=== PATIENT | male | born 1995 | race Caucasian/White ===

== ENCOUNTER → 2020-06-09 | Outpatient (REF) | payer BC, OTHER | LOC: M LABWUC 12:40 | PROVIDERS: ATTEND Physician Assistant | DX: R19.7 Diarrhea, unspecified (principal) ==

== ENCOUNTER 2020-12-30 18:54 | Emergency (ER) | payer BC, OTHER ==
[~2020-12-30] VITALS: Ht 170.2 cm; Wt 90.9 kg
--- OUTSIDE RECORDS SUMMARY | 2020-12-30 19:36 | CCD ---
Author Author [facility] Organization [facility] Address Unknown Phone Unavailable Care Team Providers Care Drywall Finisher Name Role Phone Olu White PA Unavailable Unavailable VanArnam, W Arley PA Unavailable Unavailable VanArnam, W Arley PA Unavailable Unavailable VanArnam, W Arley PA Unavailable Unavailable VanArnam, W Arley PA Unavailable Unavailable VanArnam, W Arley PA Unavailable Unavailable VanArnam, W Arley PA Unavailable Unavailable VanArnam, W Arley PA Unavailable Unavailable VanArnam, W Arley PA Unavailable Unavailable VanArnam, W Arley PA Unavailable Unavailable VanArnam, W Arley PA Unavailable Unavailable VanArnam, W Arley PA Unavailable Unavailable VanArnam, W Arley PA Unavailable Unavailable VanArnam, W Arley PA Unavailable Unavailable VanArnam, W Arley PA Unavailable Unavailable VanArnam, W Arley PA Unavailable Unavailable VanArnam, W Arley PA Unavailable Unavailable VanArnam, W Arley PA Unavailable Unavailable VanArnam, W Arley PA Unavailable Unavailable VanArnam, W Arley PA Unavailable Unavailable VanArnam, W Arley PA Unavailable Unavailable VanArnam, W Arley PA Unavailable Unavailable VanArnam, W Arley PA Unavailable Unavailable VanArnam, W Arley PA Unavailable Unavailable VanArnam, W Arley PA Unavailable Unavailable VanArnam, W Arley PA Unavailable Unavailable VanArnam, W Arley PA Unavailable Unavailable VanArnam, W Arley PA Unavailable Unavailable VanArnam, W Arley PA Unavailable Unavailable VanArnam, W Arley PA Unavailable Unavailable VanArnam, W Arley PA Unavailable Unavailable VanArnam, W Arley PA Unavailable Unavailable VanArnam, W Arley PA Unavailable Unavailable VanArnam, W Arley PA Unavailable Unavailable VanArnam, W Arley PA Unavailable Unavailable VanArnam, W Arley PA Unavailable Unavailable VanArnam, W Arley PA Unavailable Unavailable VanArnam, W Arley PA Unavailable Unavailable VanArnam, W Arley PA Unavailable Unavailable VanArnam, W Arley PA Unavailable Unavailable VanArnam, W Arley PA Unavailable Unavailable VanArnam, W Arley PA Unavailable Unavailable RACHANA F KOMAL PETERSEN Unavailable Unavailable RACAHNA F KOMAL PETERSEN Unavailable Unavailable RACHANA F KOMAL PETERSEN Unavailable Unavailable RACHANA F KOMAL PETERSEN Unavailable Unavailable RACHANA F KOMAL PETERSEN Unavailable Unavailable RACHANA F KOMAL PETERSEN Unavailable Unavailable RACHANA F KOMAL PETERSEN Unavailable Unavailable RACHANA F KOMAL PETERSEN Unavailable Unavailable RACHANA F KOMAL PETERSEN Unavailable Unavailable RACHANA F KOMAL PETERSEN Unavailable Unavailable RACHANA F KOMAL PETERSEN Unavailable Unavailable RACHANA F KOMAL PETERSEN Unavailable Unavailable RACHANA F KOMAL PETERSEN Unavailable Unavailable RACHANA F KOMAL PETERSEN Unavailable Unavailable RACHANA F KOMAL PETERSEN Unavailable Unavailable RACHANA F KOMAL PETERSEN Unavailable Unavailable RACHANA F KOMAL PETERSEN Unavailable Unavailable RACHANA F KOMAL PETERSEN Unavailable Unavailable RACHANA F KOMAL PETERSEN Unavailable Unavailable RACHANA F KOMAL PETERSEN Unavailable Unavailable RACHANA F KOMAL PETERSEN Unavailable Unavailable RACHANA F KOMAL PETERSEN Unavailable Unavailable RACHANA F KOMAL PETERSEN Unavailable Unavailable RACHANA F KOMAL PETERSEN Unavailable Unavailable RACHANA F KOMAL PETERSEN Unavailable Unavailable RACHANA F KOMAL PETERSEN Unavailable Unavailable RACHANA F KOMAL PETERSEN Unavailable Unavailable RACHANA F KOMAL PETERSEN Unavailable Unavailable RACHANA F KOMAL PETERSEN Unavailable Unavailable RACHANA F KOMAL PETERSEN Unavailable Unavailable RACHANA F KOMAL PETERSEN Unavailable Unavailable RACHANA F KOMAL PETERSEN Unavailable Unavailable RACHANA F KOMAL PETERSEN Unavailable Unavailable RACHANA F KOMAL PETERSEN Unavailable Unavailable RACHANA F KOMAL PETERSEN Unavailable Unavailable RACHANA F KOMAL PETERSEN Unavailable Unavailable RACHANA F KOMAL PETERSEN Unavailable Unavailable RACHANA F KOMAL PETERSEN Unavailable Unavailable RACHANA F KOMAL PETERSEN Unavailable Unavailable RACHANA F KOMAL PETERSEN Unavailable Unavailable RACHANA F KOMAL PETERSEN Unavailable Unavailable RACHANA F KOMAL PETERSEN Unavailable Unavailable RACHANA F KOMAL PETERSEN Unavailable Unavailable RACHANA F KOMAL PETERSEN Unavailable Unavailable RACHANA F KOMAL PETERSEN Unavailable Unavailable RACHANA F KOMAL PETERSEN Unavailable Unavailable RACHANA F KOMAL PETERSEN Unavailable Unavailable RACHANA F KOMAL PETERSEN Unavailable Unavailable RACHANA F KOMAL PETERSEN Unavailable Unavailable RACHANA F KOMAL PETERSEN Unavailable Unavailable RACHANA F KOMAL PETERSEN Unavailable Unavailable RACHANA F KOMAL PETERSEN Unavailable Unavailable RACHANA F KOMAL PETERSEN Unavailable Unavailable RACHANA F KOMAL PETERSEN Unavailable Unavailable RACHANA F KOMAL PETERSEN Unavailable Unavailable RACHANA F KOMAL PETERSEN Unavailable Unavailable RACHANA F KOMAL PETERSEN Unavailable Unavailable Chrissy REICH MD Unavailable Unavailable Chrissy REICH MD Unavailable Unavailable RACHANA F KOMAL PETERSEN Unavailable Unavailable RACHANA F KOMAL PETERSEN Unavailable Unavailable RACHANA, F KOMAL MD Unavailable Unavailable RACHANA F KOMAL PETERSEN Unavailable Unavailable RACHANA, F KOMAL MD Unavailable Unavailable RACHANA, F KOMAL MD Unavailable Unavailable RACHANA, F KOMAL MD Unavailable Unavailable RACHANA, F KOMAL MD Unavailable Unavailable RACHANA, F KOMAL MD Unavailable Unavailable RACHANA, F KOMAL MD Unavailable Unavailable RACHANA, F KOMAL MD Unavailable Unavailable RACHANA, F KOMAL MD Unavailable Unavailable RACHANA, F KOMAL MD Unavailable Unavailable RACHANA, F KOMAL MD Unavailable Unavailable RACHANA, F KOMAL MD Unavailable Unavailable RACHANA, F KOMAL MD Unavailable Unavailable RACHANA, F KOMAL MD Unavailable Unavailable RACHANA F KOMAL PETERSEN Unavailable Unavailable RACHANA, F KOMAL PETERSEN Unavailable Unavailable RACHANA F KOMAL PETERSEN Unavailable Unavailable RACHANA F KOMAL PETERSEN Unavailable Unavailable Chrissy REICH MD Unavailable Unavailable Chrissy REICH MD Unavailable Unavailable Chrissy REICH MD Unavailable Unavailable Chrissy REICH MD Unavailable Unavailable Chrissy REICH MD Unavailable Unavailable Chrissy REICH MD Unavailable Unavailable BolJed nogueira MD Unavailable Unavailable BolJed nogueira MD Unavailable Unavailable BolJed nogueira MD Unavailable Unavailable BolJed nogueira MD Unavailable Unavailable BolJed nogueira MD Unavailable Unavailable BolJed nogueira MD Unavailable Unavailable BoleJd nogueira MD Unavailable Unavailable BolJed nogueira MD Unavailable Unavailable BolJed nogueira MD Unavailable Unavailable Jed Pearson MD Unavailable Unavailable BolJed nogueira MD Unavailable Unavailable BolJed nogueira MD Unavailable Unavailable BolJed nogueira MD Unavailable Unavailable BolJed nogueira MD Unavailable Unavailable BolJed nogueira MD Unavailable Unavailable BolJed nogueira MD Unavailable Unavailable BolJed nogueira MD Unavailable Unavailable BolJed nogueira MD Unavailable Unavailable BolJed nogueira MD Unavailable Unavailable BolJed nogueira MD Unavailable Unavailable BolJed nogueira MD Unavailable Unavailable BolJed nogueira MD Unavailable Unavailable BolJed nogueira MD Unavailable Unavailable BolJed nogueira MD Unavailable Unavailable BolJed nogueira MD Unavailable Unavailable BolJed nogueira MD Unavailable Unavailable BolJed nogueira MD Unavailable Unavailable BolJed nogueira MD Unavailable Unavailable BolJed nogueira MD Unavailable Unavailable BolJed nogueira MD Unavailable Unavailable Bolmirlande Jed Villa MD Unavailable Unavailable Bolla, S Allen PETERSEN Unavailable Unavailable Bolla, S Allen PETERSEN Unavailable Unavailable Bolla, S Allen PETERSEN Unavailable Unavailable Bolla, S Allen PETERSEN Unavailable Unavailable Bolla, S Allen PETERSEN Unavailable Unavailable Bolla, S Allen PETERSEN Unavailable Unavailable Bolla, S Allen PETERSEN Unavailable Unavailable Bolla, S Allen PETERSEN Unavailable Unavailable Bolla, S Allen PETERSEN Unavailable Unavailable Bolla, S Allen PETERSEN Unavailable Unavailable Bolla, S Allen PETERSEN Unavailable Unavailable Bolla, S Allen PETERSEN Unavailable Unavailable Bolla, S Allen PETERSEN Unavailable Unavailable Bolla, S Allen PETERSEN Unavailable Unavailable Bolla, S Allen PETERSEN Unavailable Unavailable Bolla, S Allen PETERSEN Unavailable Unavailable Bolla, S Allen PETERSEN Unavailable Unavailable ANNELIESE, F OLAMIDE PETERSEN Unavailable Unavailable ANNELIESE, F OLAMIDE PETERSEN Unavailable Unavailable ANNELIESE, F OLAMIDE PETERSEN Unavailable Unavailable ANNELIESE, F OLAMIDE PETERSEN Unavailable Unavailable ANNELIESE, F OLAMIDE PETERSEN Unavailable Unavailable ANNELIESE, F OLAMIDE PETERSEN Unavailable Unavailable ANNELIESE, F OLAMIDE PETERSEN Unavailable Unavailable ANNELIESE, F OLAMIDE PETERSEN Unavailable Unavailable ANNELIESE, F OLAMIDE MD Unavailable Unavailable ANNELIESE, F OLAMIDE MD Unavailable Unavailable ANNELIESE, F OLAMIDE MD Unavailable Unavailable ANNELIESE, F OLAMIDE MD Unavailable Unavailable ANNELIESE, F OLAMIDE MD Unavailable Unavailable ANNELIESE, F OLAMIDE MD Unavailable Unavailable ANNELIESE, F OLAMIDE MD Unavailable Unavailable ANNELIESE, F OLAMIDE MD Unavailable Unavailable ANNELIESE, F OLAMIDE MD Unavailable Unavailable ANNELIESE, F OLAMIDE MD Unavailable Unavailable ANNELIESE, F OLAMIDE MD Unavailable Unavailable ANNELIESE, F OLAMIDE MD Unavailable Unavailable ANNELIESE, F OLAMIDE MD Unavailable Unavailable ANNELIESE, F OLAMIDE MD Unavailable Unavailable ANNELIESE, F OLAMIDE MD Unavailable Unavailable ANNELIESE, F OLAMIDE MD Unavailable Unavailable ANNELIESE, F OLAMIDE MD Unavailable Unavailable ANNELIESE, F OLAMIDE MD Unavailable Unavailable ANNELIESE, F OLAMIDE MD Unavailable Unavailable ANNELIESE, F OLAMIDE MD Unavailable Unavailable ANNELIESE, F OLAMIDE MD Unavailable Unavailable ANNELIESE, F OLAMIDE MD Unavailable Unavailable ANNELIESE, F OLAMIDE MD Unavailable Unavailable LETTIERE, A MADISON PA Unavailable Unavailable LETTIERE, A MADISON PA Unavailable Unavailable LETTIERE, A MADISON PA Unavailable Unavailable LETTIERE, A MADISON PA Unavailable Unavailable LETTIERE, A MADISON PA Unavailable Unavailable LETTIERE, A MADISON PA Unavailable Unavailable LETTIERE, A MADISON PA Unavailable Unavailable LETTIERE, A MADISON PA Unavailable Unavailable LETTIERE, A MADISON PA Unavailable Unavailable LETTIERE, A MADISON PA Unavailable Unavailable LETTIERE, A MADISON PA Unavailable Unavailable LETTIERE, A MADISON PA Unavailable Unavailable LETTIERE, A MADISON PA Unavailable Unavailable LETTIERE, A MADISON PA Unavailable Unavailable LETTIERE, A MADISON PA Unavailable Unavailable LETTIERE, A MADISON PA Unavailable Unavailable LETTIERE, A MADISON PA Unavailable Unavailable LETTIERE, A MADISON PA Unavailable Unavailable LETTIERE, A MADISON PA Unavailable Unavailable LETTIERE, A MADISON PA Unavailable Unavailable LETTIERE, A MADISON PA Unavailable Unavailable LETTIERE, A MADISON PA Unavailable Unavailable LETTIERE, A MADISON PA Unavailable Unavailable LETTIERE, A MADISON PA Unavailable Unavailable LETTIERE, A MADISON PA Unavailable Unavailable LETTIERE, A MADISON PA Unavailable Unavailable LETTIERE, A MADISON PA Unavailable Unavailable LETTIERE, A MADISON PA Unavailable Unavailable LETTIERE, A MADISON PA Unavailable Unavailable Re-disclosure Warning The records that you are about to access may contain information from federally-assisted alcohol or drug abuse programs. If such information is present, then the following federally mandated warning applies: This information has been disclosed to you from records protected by federal confidentiality rules (42 CFR part 2). The federal rules prohibit you from making any further disclosure of this information unless further disclosure is expressly permitted by the written consent of the person to whom it pertains or as otherwise permitted by 42 CFR part 2. A general authorization for the release of medical or other information is NOT sufficient for this purpose. The Federal rules restrict any use of the information to criminally investigate or prosecute any alcohol or drug abuse patient.The records that you are about to access may contain highly sensitive health information, the redisclosure of which is protected by Article 27-F of the [facility] Public Health law. If you continue you may have access to information: Regarding HIV / AIDS; Provided by facilities licensed or operated by the [facility] Office of Mental Health; or Provided by the [facility] Office for People With Developmental Disabilities. If such information is present, then the following [facility] mandated warning applies: This information has been disclosed to you from confidential records which are protected by state law. State law prohibits you from making any further disclosure of this information without the specific written consent of the person to whom it pertains, or as otherwise permitted by law. Any unauthorized further disclosure in violation of state law may result in a fine or shelter sentence or both. A general authorization for the release of medical or other information is NOT sufficient authorization for further disc losure. Family History Family Member Name Family Member Gender Family Member Status Date o f Status Description Data Source(s) Unknown Unknown Problem [facility] ([facility], [facility]) Encounters Encounter Providers Location Date Indications Data Source(s ) Outpatient Attender: MADISON seth 06/09/2020 08:00:00 AM EDT [facility] ([facility], [facility]) Outpatient Attender: Arley Mack: OLAMIDE DUNBAR MD 01/28/2020 12:57:16 PM EDT [facility] Allen Pearson MD: [id number] [facility] [address], [place] [address], Ph. Attender: Allen Pearson MD [facility] 01/20/2020 12:00:00 AM EDT [facility] ([facility]) Allen Pearson MD: [id number] [facility] [address] [facility] [place] [address], Ph. Attender: Allen Pearson MD [facility] 01/06/2020 12:00:00 AM EST [facility] ([facility]) Allen Pearson MD: [id number] [facility] [address], [place] [address], Ph. Attender: Allen Pearson MD [facility] 01/06/2020 12:00:00 AM EST [facility] ([facility]) Outpatient Attender: Arley Mack: OLAMIDE DUNBAR MD 12/30/2019 07:54:51 AM EST [facility] [address] [place] [address], [place] [address] 12/24/2019 12:00:00 AM EST eCW1 ([facility]) Allen Pearson MD: [id number], [place] [address], Ph. Attender: Allen Pearson MD [facility] 12/22/2019 12:00:00 AM EST [facility] ([facility]) Allen Pearson MD: [id number] [facility] [address], [place] [address], Ph. Attender: Allen Pearson MD [facility] 12/22/2019 12:00:00 AM EST [facility] ([facility]) Allen Pearson MD: [id number] [facility] [address], [facility] [address], Ph. Attender: Allen Pearson MD [facility] 12/22/2019 12:00:00 AM EST [facility] ([facility]) Recurring Patient Attender: KOMAL REICH MDReferrer: OLAMIDE CH MD 12/09/2019 10:17:59 AM EST [facility] Medications Medication Brand Name Start Date Product Form Dose Route Admi nistrative Instructions Pharmacy Instructions Status Indications Reaction Description Data Source(s) Azithromycin 500 MG Oral Tablet Azithromycin 06/09/2020 12:00:00 AM EDT active [facility] ([facility], [facility]) Dicyclomine Hydrochloride 10 MG Oral Capsule Dicyclomine HCL 06/09/2020 12:00:00 AM EDT ORAL active [facility] ([facility], [facility]) 10 mg 06/09/2020 12:00:00 AM EDT capsule 21 TAKE ONE CAPSULE BY MOUTH EVERY 8 HOURS FOR ONE WEEK TAKE ONE CAPSULE BY MOUTH EVERY 8 HOURS FOR ONE WEEK S OLD: 06/09/2020 [facility] No Active Medications 06/09/2020 12:00:00 AM EDT completed [facility] ([facility], [facility]) 4 mg 12/22/2019 12:00:00 AM EST tablet 30 TAKE ONE TABLET BY MOUTH THREE TIMES A DAY NEEDED TAKE ONE TABLET BY MOUTH THREE TIMES A DAY NEEDED S OLD: 12/22/2019 [facility] methylprednisolone 4 mg tablets in a dose pack [id number] completed methylprednisolone 4 mg tablets in a dose pack [facility] ([facility]) meloxicam 15 MG Oral Tablet meloxicam 15 mg tablet meloxicam 15 mg ta blet completed meloxicam 15 MG Oral Tablet [facility] ([facility]) Naproxen 500 MG Oral Tablet naproxen 500 mg tablet naproxen 500 mg ta blet completed Naproxen 500 MG Oral Tablet [facility] ([facility]) meloxicam 15 MG Oral Tablet meloxicam 15 mg tablet meloxicam 15 mg ta blet completed meloxicam 15 MG Oral Tablet [facility] ([facility]) Cyclobenzaprine hydrochloride 10 MG Oral Tablet cyclob enzaprine 10 mg tablet cyclobenzaprine 10 mg tablet completed Cyclobenzaprine hydrochloride 10 MG Oral Tablet [facility] ([facility]) Naproxen 500 MG Oral Tablet naproxen 500 mg tablet naproxen 500 mg ta blet completed Naproxen 500 MG Oral Tablet [facility] ([facility]) Cyclobenzaprine hydrochloride 10 MG Oral Tablet cyclob enzaprine 10 mg tablet cyclobenzaprine 10 mg tablet completed Cyclobenzaprine hydrochloride 10 MG Oral Tablet [facility] ([facility]) methylprednisolone 4 mg tablets in a dose pack [id number] completed methylprednisolone 4 mg tablets in a dose pack [facility] ([facility]) methylprednisolone 4 mg tablets in a dose pack [id number] completed methylprednisolone 4 mg tablets in a dose pack [facility] ([facility]) Naproxen 500 MG Oral Tablet naproxen 500 mg tablet naproxen 500 mg ta blet completed Naproxen 500 MG Oral Tablet [facility] ([facility]) Cyclobenzaprine hydrochloride 10 MG Oral Tablet cyclob enzaprine 10 mg tablet cyclobenzaprine 10 mg tablet completed Cyclobenzaprine hydrochloride 10 MG Oral Tablet [facility] ([facility]) meloxicam 15 MG Oral Tablet meloxicam 15 mg tablet meloxicam 15 mg ta blet completed meloxicam 15 MG Oral Tablet [facility] ([facility]) Insurance Providers Payer name Policy type / Coverage type Policy ID Covered constitution party ID Covered constitution party's relationship to everett Policy Everett Plan Information [facility] [id number] [facility] [id number] [id number] ACTIVE DUTY [id number] SP [id number] Micanopy Plan F [id number] PARENT [id number] [employer]ican[employer] Plan F [id number] PARENT [id number] Micanopy Plan F [id number] PARENT [id number] 3 [facility] [id number] FA2 [id number] [facility] EMPIRMann DE OLIVEIRA DIV [id number] EMPIRE (STATE EMP) P [id number] Results ID Date Data Source [id number] 06/09/2020 10:00:00 AM EDT [facility] ([facility]) Name Value Range Interpretation Code Description Data Lilibeth rce(s) Supporting Document(s) Gastrointestinal (GI) Panel Laboratory test result [facility] ([facility]) This Gastrointestinal PCR Panel detects the following bacteria, parasites and viruses: Campylobacter (jejuni, coli and upsaliensis), Clostridium difficile (toxin A/B), Plesiomonas shigelloides, Salmonella, Yersinia enterocolitica, Vibrio (parahaemolyticus, vulnificus and cholerae), Vibrio clolerae, Enteroaggregative E. coli (EAEC), Enteropathogenis E. coli (EPEC), Enterotoxigenic E. coli (ETEC) it/st, Shiga-like producing E. coli (STEC) stx1/stc2, E.coli O157, Shigella/Enteroinvasive E. coli (EIEC), Cryptosporidium, Cyclospora caye tanensis, Entamoeba histolytica, Giardia lamblia, Adenovirus F 40/41, Astrovirus, Norovirus GI/GII, Rotavirus A and Sapovirus (I, II, IV, V). POSITIVE by MULTIPLEXED NUCLEIC ACID PCR ORGANISM 1: CAMPYLOBACTER CONSISTENCY UNKNOWN. Campylobacter outbreaks have been associated with unpasteurized dairy, contaminated water, poultry and produce. Campylobacter are a leading cause of enteritis in the and the most common cause of foodbourne illness. Infections range from asymptomatic to severe infections characterized by bloody or non- bloody diarrhea, fever and abdominal cramping. ORGANISM 1: CAMPYLOBACTER ID Date Data Source [id number] 01/28/2020 12:57:16 PM EDT [facility] Bulmaro Orosco: 1995Provider: Lynn Monroe: 01/28/2020 History of Present IllnessPatient is a 24-year-old male who presents to the office with a chief complaint of constant low back pain and since his last office visit here he is now experiencing episodes of severe radiating pain along the posterolateral aspect of the left lower extremity. There is also intermittent numbness involving the plantar aspect of the left foot. Rarely has right lower extremity symptoms. He had one episode of bowel incontinence. Also had 2 brief episodes of penile and rectal numbness. Denies any additional episodes of bowel/bladder incontinence or numbness. Since last office visit he completed physical therapy and had [address] Pearson. The first injection helped his symptoms for 2 days. The second injection actually increased his low back pain. Results/Data XRays previously taken were reviewed today. Site: Lumbar Spine Findings:. No fractures, dislocations, or other significant abnormalities. Results/Data [facility] Impression: Moderate disc desiccation and loss of disc height at L4-5. Left-sided disc protrusion. No right neural foraminal narrowing or neural compression. Mild disc desiccation and loss of disc height at L5-S1. Assessment 1. Herniated nucleus pulposus of lumbosacral region (722.10) (M51.27) DDD at L4-5 and L5-S1 PlanPlan, Assessment and Recommendation(s) The nature of the diagnosis and various treatment alternatives were discussed today, including invasive, opera tive, and non-operative options. Patient is constant low back pain and now with left-sided radicular symptoms consistent with the left L4-5 disc herniation seen on MRI. Refractory to conservative treatment consisting of home exercises, chiropractor, physical therapy, and injections. We discussed that a left L4-5 discectomy has a high chance of lessening or resolving his left lower extremity symptoms but will not change his low back pain. Do not recommend lumbar fusion. Patient is okay with this plan and would like to move forward with left L4-5 discectomy. Surgeries are on hold due to recent Covid 19 pandemic and we will contact him once elective surgeries are now. Work / School NoteThe patient is working at this time. This document was dictated and electronically signed using [employer] Speaking software. A reasonable attempt at proof reading has been made to minimize errors. Please call with any questions. Signatures Electronically signed by : Kenji Peter; Jan 28 2020 12:54PM EST (Author) Electronically signed by : Robert Graham M.D.; Jan 28 2020 12:57PM EST Name Value Range Interpretation Code Description Data Lilibeth rce(s) Supporting Document(s) ID Date Data Source [id number] 12/30/2019 07:54:51 AM EST [facility] Bul[facility] Orosco: 1995Provider: Lynn Monroe: 12/09/2019 History of Present IllnessPatient is a 24-year-old male [place] who presents to the office with a chief complaint of constant right-sided low back pain around L4-5 and L5-S1. Associated with radiating pain in the right lower extremity which is episodic. Denies any left lower extremity symptoms. Denies any saddle paresthesia or bowel/bladder dysfunction. No change since last office visit. Recently had an MRI of his lumbar spine. Results/Data XRays previously taken were reviewed to day. Site: Lumbar Spine Findings:. No fractures, dislocations, or other significant abnormalities. Results/Data OtherMRI [facility]. Impression: Moderate disc desiccation and loss of disc height at L4-5. Left-sided disc protrusion. No right neural foraminal narrowing or neural compression. Mild disc desiccation and loss of disc height at L5-S1. Assessment 1. Lower back pain (724.2) (M54.5) PlanPlan, Assessment and Recommendation(s) The nature of the diagnosis and various treatment alternatives were discussed today, including invasive, operative, and non-oper ative options. Acute on chronic right-sided low back pain with right lumbar radiculitis. Recent MRI shows no right-sided disc herniation explain his right lower 70 symptoms. In further talking with the patient, right lower extremity symptoms are fairly infrequent. Primary complaint is his low back pain. He does have disc desiccation at L4-5 and L5-S1, worse at L4-5. We discussed conservative options such as home exercises, activity modification, chiropractor, acupuncture, and yoga. He has already attended physical therapy. Also discussed referral to a pain clinic for injections. Do not recommend patria gical intervention secondary to his young age. Patient is in agreement. I will refer him to Dr. Pearson for consultation. Work / School NoteThe patient is working at this time. This document was dictated and electronically signed using [employer] software. A reasonable attempt at proof reading has been made to minimize errors. Please call with any questions. Signatures Electronically signed by : Kenji Peter; Dec 11 2019 9:23AM EST (Author) Electronically signed by : Robert Graham M.D.; Dec 11 2019 11:43AM EST Name Value Range Interpretation Code Description Data Lilibeth rce(s) Supporting Document(s) ID Date Data Source [id number] 12/09/2019 09:25:00 AM EST [facility] PATIENT MR#: [id number] NAME: Bulmaro Veras DATE OF : 1995REFERRING PHYSICIAN: Robert GrahamEXNATE DATE: 12/09/2019EXAM: LUMBAR SPINE MRINDICATION: Right-Sided Low Back Pain Approximately L4-5 and L5- S1. Assess forDisc Herniation.PRIOR EXAM: Conventional radiographs October 10, 2019TECHNIQUE: Sagittal and axial images were obtained through the lumbar spineutilizing various pulse sequences. For the purpose of nomenclature, the highestdisk space scanned fully in the axial plane shall be designated T12/L1 nextfield normal lordosis lumbar spine. Normal signal characteristics lumbarvertebra. Normal position conus medullary is at.Findings: T12 -L1 through L3 4: No disc herniation. No central canal, lateralrecess, exiting neural foraminal stenosis.L4-5: There is moderate disc desiccation and loss of disc height. There is amoderate sized dorsal left protruding disc herniation with ventral left thecalsac effacement. The herniation extends into the mild narrows the left exitingneural foramina. There is also moderate left lateral recess stenosis. No rightexiting neural foraminal stenosis.L5-S1: Disc desiccation with mild loss of disc height. There is a small centraldorsal protruding disc herniation with minimal ventral thecal sac impingement. No central canal, lateral recess or exiting neural foraminal stenosis.Unremarkable partially visualized portions of the sacrum and medial iliac wings.Unremarkable partially visualized adrenals.IMPRESSION:1. L4-5: Disc desiccation. Moderate-sized dorsal left protruding discherniation. Patient with right-sided symptoms h owever there is no evidence forright exiting neural foraminal stenosis or extraforaminal right-sided discherniation.2. L5-S1: Disc desiccation and loss of disc height. Small central herniationRead by: Haroldo SharpTranscribed by: Haroldo SharpTranscribed Date: 12/09/2019 9:25:04 AMElectronically signed by: Haroldo SharpDacarolann signed: 12/09/2019 9:25:24 AM Name Value Range Interpretation Code Description Data Lilibeth rce(s) Supporting Document(s) Procedure Vital Signs ID Date Data Source UNK Name Value Range Interpretation Code Description Data Source(s) Body mass index (BMI) [Ratio] 29.0 kg/m2 29.0 k g/m2 [facility] ([facility], [facility]) Body height 67 [in_i] 67 [in_i] [facility] ([facility]) 5'7" Body weight 185.00 [lb_av] 185.00 [lb_av] [facility] T ([facility], [facility]) Body temperature 98.2 [degF] 98.2 [degF] [facility] ([facility]) Oxygen saturation in Arterial blood by Pulse oximetry 97 % 97 % [facility] ([facility]) Respiratory rate 12 /min 12 /min [facility] ( [facility]) Heart rate 88 /min 88 /min [facility] ([facility], [facility]) Diastolic blood pressure 79 mm[Hg] 79 mm[Hg] [facility] Systolic blood pressure 125 mm[Hg] 125 mm[Hg] [facility] Body weight 199 [lb_av] 199 [lb_av] [facility] ([facility]) Systolic blood pressure 126 mm[Hg] 126 mm[Hg] A [facility] ([facility]) Body mass index (BMI) [Ratio] 32.1 kg/m2 32.1 k g/m2 [facility] ([facility]) Body height 66 [in_i] 66 [in_i] [facility] ([facility]) Diastolic blood pressure 78 mm[Hg] 78 mm[Hg] [facility] ([facility]) Body weight 199 [lb_av] 199 [lb_av] [facility] ([facility]) Systolic blood pressure 126 mm[Hg] 126 mm[Hg] A [facility] ([facility]) Body mass index (BMI) [Ratio] 32.1 kg/m2 32.1 k g/m2 [facility] ([facility]) Body height 66 [in_i] 66 [in_i] [facility] ([facility]) Diastolic blood pressure 78 mm[Hg] 78 mm[Hg] [facility] ([facility]) Body weight 199 [lb_av] 199 [lb_av] [facility] ([facility]) Systolic blood pressure 126 mm[Hg] 126 mm[Hg] A [facility] ([facility]) Body mass index (BMI) [Ratio] 32.1 kg/m2 32.1 k g/m2 [facility] ([facility]) Body height 66 [in_i] 66 [in_i] [facility] ([facility]) Diastolic blood pressure 78 mm[Hg] 78 mm[Hg] [facility] ([facility]) Patient Treatment Plan of Care Planned Activity Planned Date Details Description Data Source (s) Naproxen 500 MG Oral Tablet [facility] ([facility]) methylprednisolone 4 mg tablets in a dose pack [facility] ([facility]) meloxicam 15 MG Oral Tablet [facility] ([facility]) Cyclobenzaprine hydrochloride 10 MG Oral Tablet [facility] ([facility]) Naproxen 500 MG Oral Tablet [facility] ([facility]) methylprednisolone 4 mg tablets in a dose pack [facility] ([facility]) meloxicam 15 MG Oral Tablet [facility] ([facility]) Cyclobenzaprine hydrochloride 10 MG Oral Tablet [facility] ([facility]) Naproxen 500 MG Oral Tablet [facility] ([facility]) methylprednisolone 4 mg tablets in a dose pack [facility] ([facility]) meloxicam 15 MG Oral Tablet [facility] ([facility]) Cyclobenzaprine hydrochloride 10 MG Oral Tablet [facility] ([facility])
--- OUTSIDE RECORDS SUMMARY | 2020-12-30 20:44 | CCD ---
Author Author [facility] Organization [facility] Address Unknown Phone Unavailable Care Team Providers Care Booking Clerk Name Role Phone Olu White PA Unavailable [...] F KOMAL PETERSEN Unavailable Unavailable RACHANA F KOAML PETERSEN Unavailable Unavailable RACHNAA F KOMAL PETERSEN Unavailable Unavailable RACHANA F [...] Unavailable BolJed nogueira MD Unavailable Unavailable BolJed nogeuira MD Unavailable Unavailable BolJed nogueira MD Unavailable [...] is protected by Article 27-F of the [facility] Public Health law. If you continue you may have access to information: Regarding HIV / AIDS; Provided by facilities licensed or operated by the [facility] Office of Mental Health; or Provided by the [facility] Office for People With Developmental Disabilities. If such information is present, then the following [facility] mandated warning applies: This information has been [...] law may result in a fine or alf sentence or both. A general authorization for the release of medical or other information is NOT sufficient authorization for further disc losure. Family History Family Member Name Family Member Gender Family Member Status Date o f Status Description Data Source(s) Unknown Unknown Problem [facility] ([facility], [facility]) Encounters Encounter Providers Location Date Indications Data Source(s ) Outpatient Attender: MADISON seth 06/09/2020 08:00:00 AM EDT [facility] ([facility]) Outpatient Attender: Arley Mack: OLAMIDE DUNBAR MD 01/28/2020 12:57:16 PM EDT [facility] Allen Pearson MD: [id number] [facility] [address], [place] [address], Ph. Attender: Allen Pearson MD [facility] 01/20/2020 12:00:00 AM EDT [facility] ([facility]) Allen Pearson MD: [id number] [facility], [place] [address], Ph. Attender: Allen Pearson MD [facility] 01/06/2020 12:00:00 AM EST [facility] ([facility]) Allen Pearson MD: [id number] [facility] [address], [place] [address], Ph. Attender: Allen Pearson MD [facility] 01/06/2020 12:00:00 AM EST [facility] ([facility]) Outpatient Attender: Arley Mack: OLAMIDE DUNBAR MD 12/30/2019 07:54:51 AM EST [facility] [address] [place] [address], [place] [address] 12/24/2019 12:00:00 AM EST eCW1 ([facility]) Allen Pearson MD: [id number], [place] [address], Ph. Attender: Allen Pearson MD [facility] 12/22/2019 12:00:00 AM EST [facility] ([facility]) Allen Pearson MD: [id number] [facility] [address], [place] [address], Ph. Attender: Allen Pearson MD [facility] 12/22/2019 12:00:00 AM EST [facility] ([facility]) Allen Pearson MD: [id number] [facility] [address], [facility] [place] [address], Ph. Attender: Allen Pearson MD [facility] 12/22/2019 12:00:00 AM EST [facility] ([facility]) Recurring Patient Attender: KOMAL REICH MDReferrer: OLAMIDE CH MD 12/09/2019 10:17:59 AM EST [facility] Medications Medication Brand Name Start Date Product Form Dose Route Admi nistrative Instructions Pharmacy Instructions Status Indications Reaction Description Data Source(s) Azithromycin 500 MG Oral Tablet Azithromycin 06/09/2020 12:00:00 AM EDT active [facility] ([facility]) Dicyclomine Hydrochloride 10 MG Oral Capsule Dicyclomine HCL 06/09/2020 12:00:00 AM EDT ORAL active [facility] ([facility]) 10 mg 06/09/2020 12:00:00 AM EDT capsule 21 TAKE ONE CAPSULE BY MOUTH EVERY 8 HOURS FOR ONE WEEK TAKE ONE CAPSULE BY MOUTH EVERY 8 HOURS FOR ONE WEEK S OLD: 06/09/2020 [facility] No Active Medications 06/09/2020 12:00:00 AM EDT completed [facility] ([facility], [facility]) 4 mg 12/22/2019 12:00:00 AM EST tablet 30 TAKE ONE TABLET BY MOUTH THREE TIMES A DAY NEEDED TAKE ONE TABLET BY MOUTH THREE TIMES A DAY NEEDED S OLD: 12/22/2019 [facility] methylprednisolone 4 mg tablets in a dose pack [id number] completed methylprednisolone 4 mg tablets in a dose pack [facility] ([facility]) meloxicam 15 MG Oral Tablet meloxicam 15 mg tablet meloxicam 15 mg ta blet completed meloxicam 15 MG Oral Tablet [facility] ([facility]) Naproxen 500 MG Oral Tablet naproxen 500 mg tablet naproxen 500 mg ta blet completed Naproxen 500 MG Oral Tablet [facility] ([facility]) meloxicam 15 MG Oral Tablet meloxicam 15 mg tablet meloxicam 15 mg ta blet completed meloxicam 15 MG Oral Tablet [facility] ([facility]) Cyclobenzaprine hydrochloride 10 MG Oral Tablet cyclob enzaprine 10 mg tablet cyclobenzaprine 10 mg tablet completed Cyclobenzaprine hydrochloride 10 MG Oral Tablet [facility] ([facility]) Naproxen 500 MG Oral Tablet naproxen 500 mg tablet naproxen 500 mg ta blet completed Naproxen 500 MG Oral Tablet [facility] ([facility]) Cyclobenzaprine hydrochloride 10 MG Oral Tablet cyclob enzaprine 10 mg tablet cyclobenzaprine 10 mg tablet completed Cyclobenzaprine hydrochloride 10 MG Oral Tablet [facility] ([facility]) methylprednisolone 4 mg tablets in a dose pack [id number] completed methylprednisolone 4 mg tablets in a dose pack [facility] ([facility]) methylprednisolone 4 mg tablets in a dose pack [id number] completed methylprednisolone 4 mg tablets in a dose pack [facility] ([facility]) Naproxen 500 MG Oral Tablet naproxen 500 mg tablet naproxen 500 mg ta blet completed Naproxen 500 MG Oral Tablet [facility] ([facility]) Cyclobenzaprine hydrochloride 10 MG Oral Tablet cyclob enzaprine 10 mg tablet cyclobenzaprine 10 mg tablet completed Cyclobenzaprine hydrochloride 10 MG Oral Tablet [facility] ([facility]) meloxicam 15 MG Oral Tablet meloxicam 15 mg tablet meloxicam 15 mg ta blet completed meloxicam 15 MG Oral Tablet [facility] ([facility]) Insurance Providers Payer name Policy type / Coverage type Policy ID Covered democrat ID Covered democrat's relationship to everett Policy Everett Plan Information [facility] [id number] FA2 [id number] [facility] [id number] FA2 [id number] ACTIVE DUTY [id number] SP [id number] Lowry Plan F [id number] PARENT [id number] Lowry Plan F [id number] PARENT [id number] 3 Lowry Plan F [id number] PARENT [id number] 3 [facility] [id number] FA2 [id number] [employer] E[employer]IRE [place] [id number] FA2 [id number] EMPIRE (STATE EMP) P [id number] Results ID Date Data Source [id number] 06/09/2020 10:00:00 AM EDT [facility] ([facility]) Name Value Range Interpretation Code Description Data Lilibeth rce(s) Supporting Document(s) Gastrointestinal (GI) Panel Laboratory test result [facility] ([facility]) This Gastrointestinal PCR Panel detects the following [...] ORGANISM 1: CAMPYLOBACTER ID Date Data Source [id number] 01/28/2020 12:57:16 PM EDT [facility] PC[facility]: Bulmaro Orosco: 1995Provider: Lynn [...] abnormalities. Results/Data OtherMRI lumbar spine performed at [facility] 12[facility]. Impression: Moderate disc desiccation [...] document was dictated and electronically signed using [employer] software. A reasonable attempt at proof reading has been made to minimize errors. Please call with any questions. Signatures Electronically signed by : Kenji Peter; Jan 28 2020 12:54PM EST (Author) Electronically signed by : Robert Graham M.D.; Jan 28 2020 12:57PM EST Name Value Range Interpretation Code Description Data Lilibeth rce(s) Supporting Document(s) ID Date Data Source [id number] 12/30/2019 07:54:51 AM EST [facility] PC[facility]: Bulmaro Orosco: 1995Provider: Lynn [...] abnormalities. Results/Data OtherMRI lumbar spine performed at [facility] on 12/09/19. Impression: Moderate disc desiccation [...] document was dictated and electronically signed using [employer] software. A reasonable attempt at proof reading has been made to minimize errors. Please call with any questions. Signatures Electronically signed by : Kenji Peter; Dec 11 2019 9:23AM EST (Author) Electronically signed by : Robert Graham M.D.; Dec 11 2019 11:43AM EST Name Value Range Interpretation Code Description Data Lilibeth rce(s) Supporting Document(s) ID Date Data Source [id number] 12/09/2019 09:25:00 AM EST [facility] PATIENT MR#: [id number] NAME: Bulmaro Veras DATE OF : 1995REFERRING [...] (BMI) [Ratio] 29.0 kg/m2 29.0 k g/m2 [facility] ([facility], [facility]) Body height 67 [in_i] 67 [in_i] [facility] ([facility]) 5'7" Body weight 185.00 [lb_av] 185.00 [lb_av] MEDEN T ([facility], [facility]) Body temperature 98.2 [degF] 98.2 [degF] [facility] ([facility]) Oxygen saturation in Arterial blood by Pulse oximetry 97 % 97 % [facility] ([facility]) Respiratory rate 12 /min 12 /min [facility] ( [facility]) Heart rate 88 /min 88 /min [facility] ([facility], [facility]) Diastolic blood pressure 79 mm[Hg] 79 mm[Hg] [facility] Systolic blood pressure 125 mm[Hg] 125 mm[Hg] [facility] Body weight 199 [lb_av] 199 [lb_av] [facility] ([facility]) Systolic blood pressure 126 mm[Hg] 126 mm[Hg] A [facility] ([facility]) Body mass index (BMI) [Ratio] 32.1 kg/m2 32.1 k g/m2 [facility] ([facility]) Body height 66 [in_i] 66 [in_i] [facility] ([facility]) Diastolic blood pressure 78 mm[Hg] 78 mm[Hg] [facility] ([facility]) Body weight 199 [lb_av] 199 [lb_av] [facility] ([facility]) Systolic blood pressure 126 mm[Hg] 126 mm[Hg] A [facility] ([facility]) Body mass index (BMI) [Ratio] 32.1 kg/m2 32.1 k g/m2 [facility] ([facility]) Body height 66 [in_i] 66 [in_i] [facility] ([facility]) Diastolic blood pressure 78 mm[Hg] 78 mm[Hg] [facility] ([facility]) Body weight 199 [lb_av] 199 [lb_av] [facility] ([facility]) Systolic blood pressure 126 mm[Hg] 126 mm[Hg] A [facility] ([facility]) Body mass index (BMI) [Ratio] 32.1 kg/m2 32.1 k g/m2 [facility] ([facility]) Body height 66 [in_i] 66 [in_i] [facility] ([facility]) Diastolic blood pressure 78 mm[Hg] 78 mm[Hg] [facility] ([facility]) Patient Treatment Plan of Care Planned Activity Planned Date Details Description Data Source (s) Naproxen 500 MG Oral Tablet [facility] ([facility]) methylprednisolone 4 mg tablets in a dose pack [facility] ([facility]) meloxicam 15 MG Oral Tablet [facility] ([facility]) Cyclobenzaprine hydrochloride 10 MG Oral Tablet [facility] ([facility]) Naproxen 500 MG Oral Tablet [facility] ([facility]) methylprednisolone 4 mg tablets in a dose pack [facility] ([facility]) meloxicam 15 MG Oral Tablet [facility] ([facility]) Cyclobenzaprine hydrochloride 10 MG Oral Tablet [facility] ([facility]) Naproxen 500 MG Oral Tablet [facility] ([facility]) methylprednisolone 4 mg tablets in a dose pack [facility] ([facility]) meloxicam 15 MG Oral Tablet [facility] ([facility]) Cyclobenzaprine hydrochloride 10 MG Oral Tablet [facility] ([facility])
[2020-12-30] MEDS ORDERED: METOCLOPRAMIDE INJ 10MG/2ML VIAL (J2765 PER 1) IV ONE (21:50)
[2020-12-30] MEDS ORDERED: KETOROLAC 30 MG/ML 1ML VIAL IV ONE (21:50)
[2020-12-30] MEDS ORDERED: dexameTHASONE 20MG/5ML VIAL (J1100 PER 1MG) IV ONE (21:50)
[2020-12-30] MEDS ORDERED: NS 1,000 ML IV ONE (21:50)
[2020-12-30 22:16] LABS: BASO % 0.5 % (0.0-1.0); EOS # 0.1 10^3/uL (0.0-0.5); EOS % 1.8 % (0.0-3.0); HEMATOCRIT 43.6 % (42.0-52.0); HEMOGLOBIN 14.7 g/dl (13.5-17.5); LYMPH # 2.2 10^3/uL (1.5-5.0); LYMPH % 39.9 % (24.0-44.0); MEAN CORPUSCULAR HEMOGLOBIN 29.1 pg (27.0-33.0); MEAN CORPUSCULAR HGB CONC 33.7 g/dl (32.0-36.5); MEAN CORPUSCULAR VOLUME 86.2 fl (80.0-96.0); MONO # 0.5 10^3/uL (0.0-0.8); MONO % 9.5 % (2.0-8.0); NEUTROPHILS # 2.7 10^3/uL (1.5-8.5); NEUTROPHILS % 48.1 % (36.0-66.0); PLATELET COUNT, AUTOMATED 206 10^3/uL (150-450); RED BLOOD COUNT 5.06 10^6/uL (4.30-6.10); WHITE BLOOD COUNT 5.6 10^3/uL (4.0-10.0)
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
[2020-12-30] MEDS ORDERED: PRED10TA2 PO (23:20)
[2020-12-30 23:37] VITALS: BP 128/70
== END 2020-12-30 23:46 | disposition home or self-care (01) ==
LOC: M ED 18:54
DX: H53.8 Other visual disturbances (principal); R51.9 Headache, unspecified
CPT/HCPCS: 36415; 70450; 80047; 83735; 85025; 96361; 96374; 96375; 99284; J1100; J1885; J2765

== ENCOUNTER → 2021-02-07 | Outpatient (REF) | payer OTHER ==
[~2021-02-07] MED LIST: PRED10TA2 PO
[2021-02-07 14:51] LABS: BASO % 0.5 % (0.0-1.0); EOS # 0.1 10^3/uL (0.0-0.5); HEMATOCRIT 45.7 % (42.0-52.0); HEMOGLOBIN 15.7 g/dl (13.5-17.5); LYMPH % 35.4 % (24.0-44.0); MEAN CORPUSCULAR HEMOGLOBIN 29.8 pg (27.0-33.0); MEAN CORPUSCULAR HGB CONC 34.4 g/dl (32.0-36.5); MEAN CORPUSCULAR VOLUME 86.7 fl (80.0-96.0); MONO # 0.6 10^3/uL (0.0-0.8); MONO % 10.4 % (2.0-8.0); NEUTROPHILS # 2.8 10^3/uL (1.5-8.5); NEUTROPHILS % 51.2 % (36.0-66.0); PLATELET COUNT, AUTOMATED 210 10^3/uL (150-450); RED BLOOD COUNT 5.27 10^6/uL (4.30-6.10); WHITE BLOOD COUNT 5.6 10^3/uL (4.0-10.0)
[2021-02-07 15:34] LABS: ALBUMIN 4.7 GM/DL (3.2-5.2); ALT/SGPT 52 U/L (12-78); BILIRUBIN,TOTAL 0.8 MG/DL (0.2-1.0); BLOOD UREA NITROGEN 17 MG/DL (7-18); CALCIUM LEVEL 9.9 MG/DL (8.5-10.1); CARBON DIOXIDE LEVEL 29 MEQ/L (21-32); CHLORIDE LEVEL 107 MEQ/L (98-107); CHOLESTEROL LEVEL 179 MG/DL (<200); CHOLESTEROL RISK RATIO 3.653 (<5); CREATININE FOR GFR 0.87 MG/DL (0.70-1.30); FREE T4 1.08 NG/DL (0.76-1.46); GLOMERULAR FILTRATION RATE > 60.0 (>60); GLUCOSE, FASTING 80 MG/DL (70-100); HDL CHOLESTEROL 49 MG/DL (>40); LDL CHOLESTEROL 108 MG/DL (<100); NON-HDL-C 130 MG/DL; POTASSIUM SERUM 4.4 MEQ/L (3.5-5.1); SODIUM LEVEL 139 MEQ/L (136-145); TOTAL PROTEIN 7.7 GM/DL (6.4-8.2); TRIGLYCERIDES LEVEL 108 MG/DL (<150)
== END ==
LOC: M SFHCPLAZ 09:43
PROVIDERS: ATTEND Nurse Practitioner Family
DX: G43.909 Migraine, unspecified, not intractable, without status migrainosus (principal); Z13.228 Encounter for screening for other metabolic disorders; Z13.220 Encounter for screening for lipoid disorders

== ENCOUNTER 2021-02-24 19:22 | Emergency (ER) | payer OTHER, BC ==
[~2021-02-24] VITALS: Ht 170.2 cm; Wt 95.5 kg
[2021-02-24] MEDS ORDERED: ISOVUE-370 76% 100ML VIAL As Ordered ONE (19:39)
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
[2021-02-24] MEDS ORDERED: AMIT25TA17 (19:59)
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
[2021-02-24 20:28] LABS: BASO % 0.3 % (0.0-1.0); EOS # 0.1 10^3/uL (0.0-0.5); EOS % 1.6 % (0.0-3.0); HEMOGLOBIN 14.2 g/dl (13.5-17.5); LYMPH # 1.4 10^3/uL (1.5-5.0); LYMPH % 23.2 % (24.0-44.0); MEAN CORPUSCULAR HEMOGLOBIN 29.6 pg (27.0-33.0); MEAN CORPUSCULAR HGB CONC 34.6 g/dl (32.0-36.5); MEAN CORPUSCULAR VOLUME 85.4 fl (80.0-96.0); MONO # 0.7 10^3/uL (0.0-0.8); MONO % 11.9 % (2.0-8.0); NEUTROPHILS # 3.8 10^3/uL (1.5-8.5); NEUTROPHILS % 62.8 % (36.0-66.0); PLATELET COUNT, AUTOMATED 198 10^3/uL (150-450); WHITE BLOOD COUNT 6.1 10^3/uL (4.0-10.0)
[2021-02-24 20:38] LABS: INR 1.08; PARTIAL THROMBOPLASTIN TIME 27.2 SECONDS (24.2-38.5); PROTHROMBIN TIME 14.2 SECONDS (12.5-14.3)
[2021-02-24] MEDS ORDERED: KETOROLAC 30 MG/ML 1ML VIAL IV ONE (20:50)
[2021-02-24 20:53] LABS: ALT/SGPT 51 U/L (12-78); BILIRUBIN,DIRECT 0.2 MG/DL (0.0-0.2); BILIRUBIN,TOTAL 0.6 MG/DL (0.2-1.0); BLOOD UREA NITROGEN 16 MG/DL (7-18); CARBON DIOXIDE LEVEL 28 MEQ/L (21-32); CHLORIDE LEVEL 105 MEQ/L (98-107); CREATININE FOR GFR 1.04 MG/DL (0.70-1.30); GLOMERULAR FILTRATION RATE > 60.0 (>60); GLUCOSE, FASTING 119 MG/DL (70-100); LIPASE 101 U/L (73-393); POTASSIUM SERUM 3.7 MEQ/L (3.5-5.1); SODIUM LEVEL 137 MEQ/L (136-145)
[2021-02-25 00:30] VITALS: BP 94/51
[2021-02-25] MEDS ORDERED: ONDA4TAB6 PO (00:34)
[2021-02-25] MEDS ORDERED: IBUP-1114 PO (00:34)
[2021-02-25] MEDS ORDERED: ONDANSETRON 4 MG ORAL DISINTEGRATING TAB PO ONE (00:35)
== END 2021-02-25 01:06 | disposition home or self-care (01) ==
LOC: M ED 19:22
DX: S06.0X1A Concussion with loss of consciousness of 30 minutes or less, initial encounter (principal); M25.512 Pain in left shoulder; V43.52XA Car driver injured in collision with other type car in traffic accident, initial encounter; Y92.410 Unspecified street and highway as the place of occurrence of the external cause; G43.909 Migraine, unspecified, not intractable, without status migrainosus; Z79.899 Other long term (current) drug therapy
CPT/HCPCS: 70450; 71260; 72125; 72131; 74177; 80048; 80076; 83690; 85025; 85610; 85730; 86850; 86900; 86901; 93041; 96374; 99285; J1885; Q0162; Q9967

== ENCOUNTER → 2023-04-25 | Outpatient (REF) | payer BC, OTHER ==
[~2023-04-25] MED LIST changes: +AMIT25TA17; +IBUP-1114 PO; +ONDA4TAB6 PO
[2023-04-25 17:48] LABS: BASO % 0.2 % (0.0-1.0); EOS % 0.3 % (0.0-3.0); HEMATOCRIT 44.6 % (42.0-52.0); HEMOGLOBIN 15.8 g/dl (13.5-17.5); LYMPH # 0.6 10^3/uL (1.5-5.0); LYMPH % 7.2 % (24.0-44.0); MEAN CORPUSCULAR HEMOGLOBIN 29.6 pg (27.0-33.0); MEAN CORPUSCULAR HGB CONC 35.4 g/dl (32.0-36.5); MEAN CORPUSCULAR VOLUME 83.5 fl (80.0-96.0); MONO # 0.4 10^3/uL (0.0-0.8); MONO % 4.5 % (2.0-8.0); NEUTROPHILS # 7.5 10^3/uL (1.5-8.5); NEUTROPHILS % 87.5 % (36.0-66.0); PLATELET COUNT, AUTOMATED 229 10^3/uL (150-450); RED BLOOD COUNT 5.34 10^6/uL (4.30-6.10); WHITE BLOOD COUNT 8.6 10^3/uL (4.0-10.0)
[2023-04-25 18:24] LABS: MONO SCRN NEGATIVE (NEGATIVE)
== END ==
LOC: M LAB REF 16:09
PROVIDERS: ATTEND Physician Assistant
DX: R53.83 Other fatigue (principal)